=== PATIENT | male | born 1965 | race Caucasian/White ===

== ENCOUNTER 2021-01-23 22:56 | Emergency (ER) | payer SELFPAY ==
[2021-01-23 23:02] VITALS: PULSE 96; RESP 16; TEMP 97.5
--- NOTE | 2021-01-23 23:51 | ED ---
General Adult HPI - General Chief complaint: Recheck/Abnormal Lab/Rx Stated complaint: Covid Test Time Seen by Provider: 01/23/21 23:02 Source: patient, RN notes reviewed Mode of arrival: ambulatory Limitations: no limitations - History of Present Illness Initial comments: 55-year-old male presents to the emergency room for a chief complaint of covid test. Patient is driving back to [place] and they required him to get a test before entering. Patient reports he just moved his daughter to [place] yesterday and today for school. He states that he has had two 10 hour drives back to back. Patient denies any symptoms of Covid. Denies any exposures.Patient has no other complaints at this time including shortness of breath, chest pain, abdominal pain, nausea or vomiting, headache, or visual changes. - Related Data Allergies Allergy/AdvReac Type Severity Reaction Status Date / Time No Known Allergies Allergy Verified 01/23/21 22:57 Review of Systems ROS Statement: Those systems with pertinent positive or pertinent negative responses have been documented in the HPI. ROS Other: All systems not noted in ROS Statement are negative. Past Medical History Past Medical History: No Reported History History of Any Multi-Drug Resistant Organisms: None Reported Past Surgical History: No Surgical Hx Reported Past Psychological History: No Psychological Hx Reported Smoking Status: Current every day smoker Past Alcohol Use History: None Reported Past Drug Use History: None Reported General Exam Limitations: no limitations General appearance: alert, in no apparent distress Head exam: Present: atraumatic, normocephalic, normal inspection Eye exam: Present: normal appearance, PERRL, EOMI. Absent: scleral icterus, conjunctival injection, periorbital swelling ENT exam: Present: normal exam, mucous membranes moist Neck exam: Present: normal inspection, full ROM. Absent: tenderness, meningismus, lymphadenopathy Respiratory exam: Present: normal lung sounds bilaterally. Absent: respiratory distress, wheezes, rales, rhonchi, stridor Cardiovascular Exam: Present: regular rate, normal rhythm, normal heart sounds. Absent: systolic murmur, diastolic murmur, rubs, gallop, clicks GI/Abdominal exam: Present: soft, normal bowel sounds. Absent: distended, tenderness, guarding, rebound, rigid Neurological exam: Present: alert Course Vital Signs 01/23/21 01/23/21 22:57 23:20 Temperature 97.5 F L Pulse Rate 96 Respiratory 16 Rate Blood Pressure 186/125 O2 Sat by Pulse 97 Oximetry Medical Decision Making - Medical Decision Making Patient is well-appearing. Patient is hypertensive here in the emergency room. Denies a history of hypertension and states he thinks this is because he has been drinking a lot of coffee and he has been stressed and driving for 20 hours in the past 2 days. She states he normally does not have high blood pressure. Patient denies any symptoms such as headache, chest pain, shortness of breath. Patient does not want his blood pressure rechecked and does not want to address this today, is aware of risks of hypertension will follow up with primary care. Patient's coronavirus test is negative. Patient can be discharged home and will return for any worsening symptoms. - Lab Data Lab Results 01/23/21 Range/Units 23:12 Coronavirus (PCR) Not Detected (Not Detectd) Disposition Clinical Impression: Lab test negative for COVID-19 virus, Hypertension Disposition: HOME SELF-CARE Condition: Good Instructions (If sedation given, give patient instructions): Coronavirus Disease 2019 (COVID-19), Hypertension (ED) Additional Instructions: Please follow up with primary care to discuss high blood pressure. Return to the emergency room for any worsening symptoms. Is patient prescribed a controlled substance at d/c from ED?: No Referrals: Rohan Whiting MD [REFERRING] - 1-2 days Time of Disposition: 23:50
[2021-01-23 23:57] VITALS: BP 186/125
== END 2021-01-24 00:02 | disposition home or self-care (01) ==
LOC: EC 22:56
DX: I10 Essential (primary) hypertension (principal); F17.200 Nicotine dependence, unspecified, uncomplicated; Z20.822 Contact with and (suspected) exposure to COVID-19
CPT/HCPCS: 87635; 99283